=== PATIENT | male | born 1980 | race Caucasian/White ===

== ENCOUNTER 2025-06-09 00:03 | Emergency (ER) | payer OTHER, SELFPAY ==
[2025-06-09 00:15] VITALS: BP 146/86
--- NOTE | 2025-06-09 00:44 | ED.SKININJ ---
HPI-Injury
General
Chief Complaint: Bite
Source: patient
Exam Limitations: none
Time Seen by Provider: 06/09/25 00:20
History of Present Illness-Injury
Initial Injury comments:
45-year-old male presents for exposure to bat in the house. Here for rabies prophylaxis.
Phy Exam
Physical Exam
Physical Exam:
Well-appearing male in no acute distress
Course
Orders/Labs/Results
Orders:
Orders
06/09/25 00:40
Rabies Immune Globulin/Pf [HyperRAB] 1,832 unit IM NOW STA
Rabies Vaccine (Pcec)/Pf [Rabavert Rabies Vacc W-Diluent] 2.5 unit IM .ONCE ONE
Vital Signs
Initial and Last Documented VS:
Initial Vital Signs
Temp Pulse Resp BP Pulse Ox
97.7 F 70 18 146/86 98
06/09/25 00:15 06/09/25 00:15 06/09/25 00:15 06/09/25 00:15 06/09/25 00:15
Last Documented Vital Signs
Temp Pulse Resp BP Pulse Ox
97.7 F 70 18 146/86 98
06/09/25 00:15 06/09/25 00:15 06/09/25 00:15 06/09/25 00:15 06/09/25 00:15
MDM/Problems Addressed
Differential Diagnosis Includes:
Risks and benefits of rabies prophylaxis were discussed. He plans on testing the bat that was in his house but will initiate prophylaxis today. He will follow-up with the infusion center for the remaining 3 vaccines.
*Pulse Oximetry
SaO2: 98
Patient hypoxic: no
*Critical Care Note
Total Time (30-74mins, 75-104mins- exclusive of procedures): Not Applicable
ED Attending Note
-
Portions of this chart may have been created with voice recognition software.� Occasional wrong word or��sound alike� substitutions may have occurred due to the inherent limitations of voice recognition software.
Discharge Plan
Departure
Patient Disposition: Home (Routine Discharge)
Date of Disposition: 06/09/25
Time of Disposition: 00:46
Patient with high blood pressure during this ER visit?: No
Discharge Problem:
Rabies, need for prophylactic vaccination against
Prescriptions:
New
RabAvert (PF) 2.5 unit Suspension For Reconstitution
1 ml IM . DIRECTED Qty: 3 0RF
Rx Instructions:
See Rabies Vaccine Post Exposure Prophylaxis Instruction Sheet for Dosing Instructions
Stand Alone Forms: Rabies Vaccine Post Exp Dosing
Activity Restrictions/Additional Instructions:
follow-up in the infusion center for the second rabies vaccine as scheduled
Interventions
Interventions:
*Risk Screen - Suicide Last Done: 06/09/25 00:15
*Neglect/Abuse Screening Last Done: 06/09/25 00:15
[facility] Risk Assessment Tool Last Done: 06/09/25 00:39
ED-Skin Assessment Last Done: 06/09/25 00:39
Discharge Date and Time
Print Language: IVORIAN
[2025-06-09] MEDS: RABAVERT RABIES VACC W-DILUENT 2.5 UNIT IM (01:05)
== END 2025-06-09 01:39 | disposition home or self-care (01) ==
LOC: EMR 00:03
PROVIDERS: EMERGENCY PHYSICIAN Emergency Medicine; FAMILY PHYSICIAN Family Medicine
DX: Z20.3 Contact with and (suspected) exposure to rabies (principal); Z23 Encounter for immunization; Z29.14 Encounter for prophylactic rabies immune globulin
CPT/HCPCS: 96372; 90471; 99284; 90375; 90675